=== PATIENT | female | born 1985 ===

== ENCOUNTER 2021-12-05 09:26 | Day surgery (SDC) | payer MEDICAID ==
[~2021-12-05] VITALS: Ht 162.6 cm; Wt 91.8 kg
[2021-12-05 10:26] VITALS: BP 127/84; PULSE 66; TEMP 97.9
--- NOTE | 2021-12-05 11:20 | NUR ---
[facility]BA INTERN speaking with the PT.
--- NOTE | 2021-12-05 11:23 | NUR ---
PT taken back to the OR by Annalee LACEY.
[2021-12-05] MEDS ORDERED: NORCO 325 MG-51 TAB PO (12:18)
[2021-12-05 12:45] VITALS: BP 123/84; PULSE 52; TEMP 97.6
--- NOTE | 2021-12-05 12:45 | NUR ---
PT arrived from procedure drowsy but oriented. VSS. PT provided chocolate ice cream and water to drink. PT denies nausea. NO vomiting. Additonal warm blakets provided. Sister in-law is present. Verbal report obtained at the RN station. PT oriented to room and call ricardo, within reach.
[2021-12-05 13:00] VITALS: BP 121/73; PULSE 49
--- NOTE | 2021-12-05 13:00 | NUR ---
VSS. PT continues to deny nausea. Call ricardo remains within reach.
[2021-12-05 13:09] VITALS: TEMP 97.5
[2021-12-05 13:15] VITALS: BP 120/80; PULSE 52
--- NOTE | 2021-12-05 13:15 | NUR ---
VSS. PT minimally assisted to bathroom and was able to successfully void. Then back to bed. PT expressed desire to be discharged. Call ricardo remains within reach.
--- NOTE | 2021-12-05 13:25 | NUR ---
IV discontinued. Catheter tip intact. Pressure bandage applied. NO redness or swelling noted. DC instructions reviewed with the PT and her visitor, who verbalized understanding. PT signed the related paperwork. Questions answered to PT satisfaction. PT changed into personal clothes and then was dismissed from [facility] [place] to the PT entrence by Barbara LACEY. PT tranferred into the care of her sister in-law, who is driving private car. PT has DC packet and personal belongings in hand.
== END 2021-12-05 13:40 | disposition home or self-care (01) ==
LOC: SDCO 09:26
DX: D17.0 Benign lipomatous neoplasm of skin and subcutaneous tissue of head, face and neck (principal)
CPT/HCPCS: J0690; J1100; J2405; J2704; J3010; J7120